=== PATIENT | female | born 1990 | race Caucasian/White ===

== ENCOUNTER 2019-07-09 11:16 | Emergency (ER) | payer OTHER ==
[2019-07-09] MEDS ORDERED: Ibuprofen 200 MG TAB ONE (12:17)
[2019-07-09] MEDS ORDERED: Acetaminophen 500 MG TAB ONE ×2 (12:17→12:24)
--- NOTE | 2019-07-09 13:36 | RAD ---
LEFT ELBOW FOUR VIEWS: History: Elbow pain following injury from a fall. FINDINGS/IMPRESSION: No fracture, dislocation, or other significant acute osseous process. POS: C
== END 2019-07-09 13:29 | disposition home or self-care (01) ==
LOC: ERS 11:16
DX: M25.522 Pain in left elbow (principal); Z79.899 Other long term (current) drug therapy